=== PATIENT | male | born 1965 | race Caucasian/White ===

== ENCOUNTER 2024-11-19 12:17 | Outpatient (CLI) | payer BC ==
[2024-11-19 12:56] LABS: MEAN PLATELET VOLUME 8.3 FL (7.4-10.4); RED CELL DISTRIBUTION WIDTH 13.1 % (11.5-14.5)
[2024-11-19 13:24] LABS: CHOL/HDL RATIO 5.4 (0.00-4.99); CREATININE 1.06 MG/DL (0.60-1.10); LDL CHOLESTEROL 159 MG/DL (50-100); TOTAL CARBON DIOXIDE 27.9 MMOL/L (24-32); eGFR 72 ML/MIN
[2024-11-23 05:12] LABS: % FREE PSA 11.8 % (.); PROSTATE SPECIFIC AG, SERUM 3.8 ng/mL (0.0-4.0)
== END 2024-11-19 23:59 | disposition home or self-care (01) ==
LOC: RAD 12:17
PROVIDERS: ATTEND Nurse Practitioner
DX: Z00.00 Encounter for general adult medical examination without abnormal findings (principal); Z12.5 Encounter for screening for malignant neoplasm of prostate; R53.83 Other fatigue; E78.5 Hyperlipidemia, unspecified
CPT/HCPCS: 36415; 80053; 80061; 84153; 84154; 84439; 84443; 85025